=== PATIENT | female | born 1985 | race Caucasian/White ===

== ENCOUNTER 2018-12-07 10:58 | Emergency (ER) | payer OTHER, SELFPAY ==
[2018-12-07 11:00] VITALS: BP 114/66; PULSE 73; RESP 18; TEMP 35.9; O2SAT 100; BMI 36.3
--- NOTE | 2018-12-07 11:29 | ED.VISSUMM ---
- ER Visit Summary Date of Service: 12/07/18 Chief Complaint: Menstrual cramps History of Present Illness: The patient is a 33 F states that she began her period today she was experiencing menstrual cramps. She states she got pale and sweaty. She took some Tylenol some ibuprofen and feels better. However this happened at work and work was concerned she may pass out or injure herself and wanted her evaluated so they sent her here. She states she feels okay right now. She denies any significant medical problems. She had a bilateral tubal ligation. Physical Examination: Afebrile vital signs stable Gen: Well-nourished well-developed Head: Normocephalic atraumatic Eyes: Perrl EOMI ENT: TMs clear no rhinorrhea moist mucous membranes Neck: Supple no lymphadenopathy no JVD nontender CVS: Regular rate rhythm no murmurs normal S1-S2 Respiratory: No distress clear to auscultation bilaterally chest nontender Abdomen: Soft nontender nondistended normal bowel sounds no masses Back: Nontender Extremity: Nontender no edema Skin: Normal color no rash Neuro: alert orientated ?3 CN II-XII intact normal strength sensation Psych: Normal affect normal mood Emergency Department Course and Treatment: Patient will be discharged home with continued supportive care return if worsening or concerns. I will provide her the name of a local local sales associate should she wish to follow-up with them. Impression: 1. Dysmenorrhea 2. Vasovagal near syncope This note was generated with [employer] dictation software. It may contain incorrect words, spelling, and punctuation that were not noted in review of the chart prior to signing ED Disposition - Plan for ED Patient: Disposition: Home or Assisted Living Instructions: Dysmenorrhea Referrals: Kandy Sierra MD [STAFF PHYSICIAN] - As Needed
--- NOTE | 2018-12-07 11:42 | ED.RN ---
REVIEWED /C INSTRUCTIONS WITH PT. VERBALIZES UNDERSTANDING. DENIES ANY NEEDS. AMBULATES OUT OF DEPARTMENT WITHOUT DIFFICULTY.
== END 2018-12-07 11:43 | disposition home or self-care (01) ==
PROVIDERS: Emergency Provider Emergency Medicine
DX: N94.6 Dysmenorrhea, unspecified (principal); R55 Syncope and collapse; Z72.0 Tobacco use
CPT/HCPCS: 99282

== ENCOUNTER 2020-06-20 20:12 | Emergency (ER) | payer OTHER, SELFPAY ==
[2020-06-20 20:12] VITALS: BP 120/81; PULSE 113; RESP 18; TEMP 36.3; O2SAT 99; BMI 33.3
--- NOTE | 2020-06-20 20:38 | ED.VIS.GEN ---
History of Present Illness Chief Complaint: Wound Informant: Patient Onset: Days - 2 Context: Gradual Onset Timing: Continuous Quality: sore Location: right prox thigh/groin Current Severity: Moderate Maximum Severity: Moderate Worsened by: walking, palpation Relieved by: leaving alone and resting Associated Symptoms: chills earlier. redness outside the line. Narrative: Patient had an abscess in her right groin that formed quickly over 2 days. Never had this before, she is healthy otherwise. She was urgent care this morning. She states that they incised it with a razor and squeezed it and there was no other instrumentation. She states they pam a line around it, put her on Bactrim, she has had 1 dose. Now the redness is outside the line so she presents to the ER as she was advised to do since this happened. Past Medical History - Allergies and Home Meds Allergies/Adverse Reactions: Allergies No Known Allergies Allergy (Verified 12/07/18 11:12) Primary Care Physician: Care Physician,No Primary [Primary Care Provider] - Past Medical History: None Smoking Status: Current every day smoker Review of Systems General: Reports: Chills. Denies: Fever, Sweats Eyes: Denies: Visual changes - bilaterally, Diplopia ENT: Denies: Rhinorrhea, Sore throat Cardiovascular: Denies: Chest pain, Palpitations Respiratory: Denies: Dyspnea, Cough, Dyspnea on exertion Gastrointestinal: Denies: Abdominal pain, Nausea, Vomiting, Diarrhea, Melena, Hematochezia Genitourinary: Denies: Dysuria, Hematuria, Frequency Musculoskeletal: Reports: Extremity Pain - Right groin only at site of abscess. Denies: Back pain Skin: Reports: Rash, Abscess. Denies: Wounds Neurological: Denies: Headache, Weakness, Numbness Physical Exam Vital Signs/Narrative: Vital Signs Temp Pulse Resp BP Pulse Ox 06/20/20 20:12 97.4 F L 113 H 18 120/81 H 99 Inital Vital Signs reviewed: Yes General: Well nourished, Well developed, No Acute Distress Head: Normocephalic, Atraumatic Skin: Rash - Abscess right groin, approximately 5-6 cm, with surrounding cellulitis that is a centimeter or less beyond a circular line that is drawn around the area., - - There is a small open incision that is just medial to the majority of the palpable abscess. Squeezing pressure on the abscess does not provide purulent discharge from the incision. Neurological: Alert, Oriented x3, Cranial nerves II-XII grossly intact, Normal Strength, Normal Sensation Psychological: Normal affect, Normal Mood Diagnostic/Tx/Re-eval - Medical Decision Making In my clinical judgment, this is an inadequate incision and drainage. As I discussed with the patient, it certainly is common for redness to go outside the line within the first 48 hours before 2 days worth of antibiotics are in her bloodstream. However in this case, I think she needs a more aggressive incision and drainage to provide adequate care for this abscess. She understands and consents to that. Upon cutting into the initial incision, there was already purulent discharge. The cavity extended clear cross laterally to the limit of the erythema where the line was drawn, see the procedure note. 2 incisions were made and there were 2 different areas that were packed because of the size of the abscess. Patient is to continue the Bactrim, I do not think she needs any IV antibiotics at this time, we discussed reasons to return, she is comfortable with that plan. Procedures Procedure(s): Incision and drainage complex cutaneous abscess right thigh/groin --locally anesthetized with a total of 14 cc of plain 1% lidocaine, cleansed with chlorhexidine, and initially incised at the site of the initial small incision medially within the abscess, which was extended. Small hemostats were used to instrument the abscess cavity and deloculated, which was successful and yielded more purulent discharge, but I was not able to reach the lateral end of the abscess cavity. For that reason, another incision was made closer to that side, and I deloculated around the cavity again, irrigated the cavity with a total of 60 cc of sterile saline, and packed the cavity from both sides with 2 different strips of quarter inch gauze. Gauze dressing with bacitracin applied afterwards. Painful at times but tolerated well from the patient, no complications. ED Disposition - Plan for ED Patient: Disposition: Home or Assisted Living Diagnosis: Cutaneous abscess of right lower extremity Instructions: ED Abscess Incision And Drainage Additional Instructions: In 2 days if the redness is lyndsey/improving, and you feel the abscess is looking better, pull both strips of packing out and discarded. Continue to keep covered with gauze and antibiotic ointment until there is no more discharge from either incision. Take the antibiotics until completely gone. If you feel like the abscess is worsening at any point, feel free to return to the ER for reevaluation of it.
[2020-06-21] MEDS: Lidocaine 1% (20 ml mdv) 20 ML Vial INFILT (00:23)
== END 2020-06-21 00:24 | disposition home or self-care (01) ==
PROVIDERS: Emergency Provider Emergency Medicine
DX: L02.415 Cutaneous abscess of right lower limb (principal); L02.214 Cutaneous abscess of groin; F17.200 Nicotine dependence, unspecified, uncomplicated
CPT/HCPCS: 10060; 99282

== ENCOUNTER → 2023-06-10 | Outpatient (CLI) | payer OTHER, SELFPAY ==
[2023-06-10 10:52] LABS: Absolute Neutrophil Count 3.4 X10^3/uL (2.0-7.7); Basophil# 0.02 X10^3/uL; Basophil% 0.4 % (0-1); Eosinophil# 0.37 X10^3/uL; Eosinophils% 6.8 % (0-5); Hematocrit 42.3 % (37-47); Hemoglobin 13.7 g/dL (12.0-15.0); Lymphocyte % 22.1 % (19-41); Mean Corp Hgb Conc 32.4 g/dL (32-36); Mean Corpuscular Hgb 29.3 pg (27.0-32.0); Mean Corpuscular Volume 90.6 fL (81-99); Mean Platelet Vol. 10.5 fl (6.2-12.0); Monocyte% 7.4 % (0-10); NRBC Flagged by Analyzer 0 % (0-5); Neutrophil # 3.42 X10^3/uL (2.7-7.7); Neutrophil % 62.7 % (47-70); Platelet Count 283 K/mm3 (150-450); RBC Distribution Width CV 13.3 % (11.6-14.6); RBC Distribution Width SD 44.1 fl (35.1-43.9); Red Blood Count 4.67 M/mm3 (4.2-5.4); White Blood Count 5.4 K/mm3 (4.4-11.0)
[2023-06-10 11:36] LABS: AST(SGOT) 20 U/L (15-37); Alanine Aminotransfer ALT/SGPT 21 U/L (13-56); Albumin, Serum 3.8 g/dL (3.2-5.0); Alkaline Phosphatase 49 U/L (45-117); Anion Gap 6 (5-15); BUN 12 mg/dL (7-18); BUN/Creat Ratio 15.3 RATIO (10-20); Calcium,Total 8.9 mg/dL (8.5-10.1); Chloride 108 mmol/L (98-107); Cholesterol 144 mg/dL (200); Creatinine, Serum 0.78 mg/dL (0.55-1.02); EST Glomerular Filtration Rate 88 mL/min (>60); Est Glom Filt Rate - Afr Amer 107 mL/min (>60); Globulin 3.7 g/dL (2.2-4.2); Glucose 96 mg/dL (74-106); High Density Lipoprotein 64 mg/dL; Potassium 4.2 mmol/L (3.5-5.1); Protein, Total 7.5 g/dL (6.4-8.2); Sodium Level 139 mmol/L (136-145); Thyroid Stim Hormone (TSH) 0.61 uIU/mL (0.358-3.74); Triglycerides 44 mg/dL; Very Low Density Lipoprotein 9 mg/dL (5-40)
[2023-06-10 11:50] LABS: Vitamin D,25 Hydroxy 17.6 ng/mL
== END | disposition home or self-care (01) ==
LOC: BIMLAB 09:02
PROVIDERS: PCP Internal Medicine; Referring Provider Internal Medicine; Visit Provider Internal Medicine
DX: R35.0 Frequency of micturition (principal); E66.9 Obesity, unspecified; Z83.3 Family history of diabetes mellitus; L65.9 Nonscarring hair loss, unspecified; Z13.6 Encounter for screening for cardiovascular disorders
CPT/HCPCS: 36415; 80053; 80061; 82306; 83036; 84443; 85025